=== PATIENT | female | born 1950 | race Hispanic/Latino ===

== ENCOUNTER 2023-05-30 12:55 | Outpatient (CLI) | payer MEDICARE, SELFPAY ==
--- NOTE | ~2023-05-30 | XR_ITS ---
EXAMINATION: XR cervical spine min 6V DATE: 05/30/2023 13:25 INDICATION: Neck pain. TECHNIQUE: 5 views of cervical spine including flexion and extension views were obtained. COMPARISON: None. FINDINGS: There is 2 mm anterolisthesis of C4 on C5 and C5 on C6. There is no abnormal motion with fl exion or extension. There is 4 degrees levocurvature of cervical spine. Vertebral body heights are no rmal. Intervertebral disc heights are normal. There is multilevel facet joint osteoarthritis, severe bilaterally at most cervical levels. No central canal stenosis or prevertebral soft tissue swelling. IMPRESSION: 1. Severe cervical facet joint osteoarthritis. Reviewed, dictated and finalized at location E. [employer]
== END 2023-05-30 12:56 | disposition home or self-care (01) ==
LOC: ANHIMG 13:04
DX: M50.30 Other cervical disc degeneration, unspecified cervical region (principal)
CPT/HCPCS: 72052

== ENCOUNTER 2024-04-30 10:34 | Outpatient (CLI) | payer MEDICARE, SELFPAY ==
--- NOTE | ~2024-04-30 | XR_ITS ---
Left Shoulder Technique: AP and scapular Y views were obtained. Clinical History: Pain Findings: No fracture or dislocation is seen. Osseous alignment is anatomic. The glenohumeral and acr omioclavicular joint spaces are preserved. Soft tissues are unremarkable. Impression: Unremarkable left shoulder radiographs. Reviewed, dictated and finalized at [facility]. [employer] RE[employer]ER Impression: Unremarkable left shoulder radiographs.
== END 2024-04-30 10:35 | disposition home or self-care (01) ==
DX: M25.512 Pain in left shoulder (principal)
CPT/HCPCS: 73030